=== PATIENT | female | born 1950 | race Caucasian/White ===

== ENCOUNTER 2017-11-07 05:57 | Day surgery (SDC) | payer MEDICARE, OTHER ==
[~2017-11-07 05:57] MED LIST: Buffered Lidocaine 0.9% SYRIN* 5 ML/SYR SYRINGE INTRADERM ONE
[2017-11-07] MEDS ORDERED: Buffered Lidocaine 0.9% SYRIN* 5 ML/SYR SYRINGE ONE (06:07)
[2017-11-07] MEDS ORDERED: ceFAZolin 2 GM PREMIX (*) 2 GM/50 ML BAG IVPB ONE ×2 (06:07→06:08)
[2017-11-07] MEDS ORDERED: Bupivacaine 0.25% SDV* 30 ML ONE (07:22)
[2017-11-07] MEDS ORDERED: fentaNYL* 50 MCG/ML 2 ML VIAL (100 MCG VIAL) ONE (07:47)
[2017-11-07] MEDS ORDERED: Midazolam* 1 MG/ML 2 ML VIAL (2 MG) ONE (07:47)
[2017-11-07] MEDS ORDERED: HYDROcodone/ACETAMIN 5-325 MG* 1 TAB PO PRN (09:47)
[2017-11-07] MEDS ORDERED: Ibuprofen TAB* 600 MG PO PRN (09:47)
[2017-11-07] MEDS ORDERED: Acetaminophen TAB* 325 MG PO PRN (09:47)
[2017-11-07] MEDS ORDERED: Ondansetron INJ* 2 MG/ML VIAL ONE (10:00)
[2017-11-07] MEDS ORDERED: Dexamethasone IV* 4 MG/ML 1 ML (4 MG) ONE (10:00)
[2017-11-07] MEDS ORDERED: Propofol* 10 MG/ML 20 ML BTL IV PUSH ONE (10:00)
[2017-11-07] MEDS ORDERED: Lidocaine 2% PF * 5 ML VIAL ONE (10:00)
[2017-11-07] MEDS ORDERED: HYDROcodone/ACETAMIN 5-325 MG* 1 TAB ONE (10:32)
[2017-11-07] MEDS ORDERED: Ibuprofen TAB* 600 MG ONE (10:32)
[2017-11-07 11:52] VITALS: BP 135/68
--- NOTE | 2017-11-08 07:07 | OP ---
DATE OF OPERATION: 11/07/17 - [facility] DATE OF : 48 SURGEON: Kobe Jeffers MD ASSISTANTS: KAYLAN Burris and KAYLAN Nickerson. An client services assistant was needed for the entirety of the procedure to aid in positioning of the arm and for retraction. ANESTHESIOLOGIST: Dr. Renee. ANESTHESIA: General. 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 OPERATIVE PROCEDURE: 1. Right index finger, metacarpophalangeal joint arthroplasty with Integra Silicone MCP implant. 2. Right index finger, radial collateral ligament repair. INDICATIONS: Milagro has had progressive disease. I have talked to her about risk and benefits. She understands that there is a risk of stiffness, risk of instability and risk for further surgery with the surgery. She would like to proceed. ESTIMATED BLOOD LOSS: 5 mL. COMPLICATIONS: None. FINDINGS: As expected. DESCRIPTION OF PROCEDURE: Milagro was seen in the preoperative holding area. The correct side, site, and procedure were identified. We came back to the operating room where the arm was prepped and draped in the usual fashion. A time-out was performed. The arm was exsanguinated with the Esmarch and the tourniquet inflated to 250 mmHg. I then made a curvilinear incision over the ulnar aspect of the MCP joint. A full- thickness flap was raised right off of the extensor kitchen. The extensor tendons were still reasonably centralized and so I split the interval between the EIP and the EDC and the tendon from the capsule. The layers were , the capsule was opened longitudinally and filled back radially and ulnarly. Once the joint was exposed, I went ahead and used the starting awl to open up the metacarpal head. The alignment david was placed. The alignment was checked fluoroscopically. The cutting guide was placed and cut was made just at the distal aspect of the origin of the collateral ligaments. The radial collateral ligament was quite attenuated and deficient. I then used the starting awl to open up the proximal phalanx. The gal was used to create a window in the subchondral bone sufficient to place the cutting guide. The guide was placed, a millimeter of proximal phalanx was excised with the saw. The gal was then used to open up the subchondral bone adequate to receive the broaches. I broached up to size 30. I then came to metacarpal, in a similar fashion, I broached to a size 30. The finger was placed in gentle supination during the broaching. Once that was all done, I went ahead and placed the trial implant. The fit and alignment were very nice. I removed the trial. I went ahead and placed two drill holes on the radial aspect of the metacarpal head. A 4-0 Ethibond suture was used to suturing. The two drill holes were placed at the 11 o'clock and at the 7 o'clock position. A 4-0 Ethibond suture was used to sew into the radial collateral ligament. Suture was then passed underneath the bone tunnel and sewn back into the tendon in whipstitch fashion. At this point, I went ahead and irrigated everything out copiously without touching the implant with the gloves or allowing the implant to touch anything other than the pickup. I went ahead and placed the Integra Silicone MCP arthroplasty implant. I then reduced the joint. I went ahead and pulled appropriate tension on the radial collateral ligament and sewed it in place to complete the repair of the radial collateral ligament. At this point, I went ahead and irrigated everything up. The capsule was closed with 4-0 Vicryl suture, the splint in the extensor tendon was closed with 4-0 Prolene suture with the knots buried. I went ahead and imbricated the radial sagittal band in [id number] fashion to tighten that up. Everything was looking good , so I went ahead and irrigated out the wound. Skin was closed with 4-0 Monocryl suture. Wounds were dressed with Xeroform, 4x4s, sterile Webril, and a splint was placed holding the MCP joint in 20 degrees of flexion and the IP joints in full extension and wrapping around the radial side of the index fingers so as to prevent any stress on the radial collateral ligament. Tourniquet was deflated. The hand pinked up immediately. She was then woken up and taken to the recovery room in stable condition. [id number]/[facility] #: [id number] RANDY
== END 2017-11-07 12:01 | disposition home or self-care (01) ==
LOC: OR 05:57
PROVIDERS: ATTEND Orthopaedic Surgery Hand Surgery
DX: M06.341 Rheumatoid nodule, right hand (principal); M24.341 Pathological dislocation of right hand, not elsewhere classified; Z87.891 Personal history of nicotine dependence; K21.9 Gastro-esophageal reflux disease without esophagitis; M79.7 Fibromyalgia
CPT/HCPCS: 36415; 86803; 88304; 88311; A9270-GY; C1776; J0690; J1100; J2250; J2405; J2704; J3010

== ENCOUNTER 2017-11-23 19:14 | Emergency (ER) | payer MEDICARE, OTHER ==
[2017-11-23 22:11] LABS: Urine Appearance Cloudy; Urine Blood Negative (Negative); Urine Color Yellow; Urine Ketones Negative (Negative); Urine Protein Negative (Negative); Urine Urobilinogen Negative (Negative)
[2017-11-23] MEDS ORDERED: Cephalexin CAP* 500 MG PO ONE (22:33)
[2017-11-23 22:48] VITALS: BP 152/88
--- NOTE | 2017-11-24 00:11 | ED ---
Lower Extremity - HPI Summary HPI Summary: Patient presents to the ED with daughter. Daughter states she has been more confused recently, but patient denies this. She notes to a fall recently to the right leg which was witnessed by daughter. She denies hitting her head, LOC or back pain. SHe notes to a "burning" feeling to the right lateral thigh. She denies any and all other symptoms. She states she does not want a xray or other testing. I have advised she take a urine test to which she agrees. Denies SOb, chest discomfort, N/V/C/D. Denies fevers, sweats or chills. She has fibromyalgia, but is otherwise healthy. - History of Current Complaint Chief Complaint: EDHipPelvisInjury Stated Complaint: FALL Time Seen by Provider: 11/23/17 21:26 Hx Obtained From: Patient Mechanism Of Injury: Blunt Trauma Onset of Pain: Minutes Onset/Duration: Minutes Severity Initially: Mild Severity Currently: Mild Pain Intensity: 0 Pain Scale Used: 0-10 Numeric Timing: Constant Location: Is Discrete @ - left lateral thigh Associated Signs And Symptoms: Positive: Swelling Aggravating Factor(s): Standing, Ambulation Alleviating Factor(s): Elevation Able to Bear Weight: No - Risk Factors Gout Risk Factors: Negative DVT Risk Factors: Negative Septic Arthritis Risk Factor: Negative - Allergies/Home Medications Allergies/Adverse Reactions: Allergies Allergy/AdvReac Type Severity Reaction Status Date / Time No Known Allergies Allergy Verified 11/07/17 06:16 PMH/Surg Hx/FS Hx/Imm Hx Previously Healthy: Yes Endocrine/Hematology History: Denies: Hx Diabetes Cardiovascular History: Denies: Hx Hypertension, Hx Pacemaker/ICD GI History: Reports: Hx Gastroesophageal Reflux Disease - CONTROL WITH MEDS, Hx Hiatal Hernia - WITH A MALFUNCTION ESOPHAGUS, Hx Irritable Bowel, Other GI Disorders - COLITIS History: Reports: Hx Kidney Infection - HX OF Musculoskeletal History: Reports: Hx Arthritis, Hx Rheumatoid Arthritis, Hx Bursitis, Other Musculoskeletal History - DDD Denies: Hx Osteoporosis Sensory History: Reports: Hx Contacts or Glasses - READING GLASSES Denies: Hx Hearing Aid Opthamlomology History: Reports: Hx Contacts or Glasses - READING GLASSES Neurological History: Reports: Hx Headaches - STATES RELATED TO NECK-STATES HAS TALKED WITH MD ABOUT THIS Psychiatric History: Denies: Hx Panic Disorder - Cancer History Cancer Type, Location and Year: CERVIX 1974 Hx Chemotherapy: No Hx Radiation Therapy: No - Surgical History Surgery Procedure, Year, and Place: 1973 HYSTERECTOMY, [place], [place]. 1978 TONSILLECTOMY, (37 YEARS AGO), [place], [place]. 1993 RIGHT KNEE REPLACEMENT, [place]. 2005 RIGHT ROTATOR CUFF REPAIR, [facility]. 07/2015 LUMBAR REGION BACK SURGERY WITH FUSION, [place], [place] Hx Anesthesia Reactions: No - Immunization History Hx Pertussis Vaccination: No Immunizations Up to Date: Unable to Obtain/Confirm Infectious Disease History: No Infectious Disease History: Denies: Traveled Outside the US in Last 30 Days - Social History Occupation: Unemployed Lives: With Family Alcohol Use: Rare Hx Substance Use: No Substance Use Type: Reports: None Smoking Status (MU): Former Smoker Type: Cigarettes Amount Used/How Often: 1/2 PPD FOR ABOUT 50 YEARS Length of Time of Smoking/Using Tobacco: 50 YEARS Have You Smoked in the Last Year: Yes Review of Systems Constitutional: Negative Negative: Fever, Chills, Fatigue Eyes: Negative Cardiovascular: Negative Respiratory: Negative Genitourinary: Negative Positive: no symptoms reported, see HPI Positive: Myalgia - right lateral thigh Skin: Negative All Other Systems Reviewed And Are Negative: Yes Physical Exam Triage Information Reviewed: Yes Vital Signs On Initial Exam: Initial Vitals Temp Pulse Resp BP Pulse Ox 98.4 F 84 18 156/105 94 11/23/17 19:29 11/23/17 19:29 11/23/17 19:29 11/23/17 19:29 11/23/17 19:29 Vital Signs Reviewed: Yes Appearance: Positive: Well-Appearing, No Pain Distress, Well-Nourished Skin: Positive: Warm, Skin Color Reflects Adequate Perfusion Head/Face: Positive: Normal Head/Face Inspection Eyes: Positive: EOMI, COLTON, Conjunctiva Clear Neck: Positive: Supple, Nontender, No Lymphadenopathy Respiratory/Lung Sounds: Positive: Clear to Auscultation, Breath Sounds Present Cardiovascular: Positive: Normal, RRR, Pulses are Symmetrical in both Upper and Lower Extremities Musculoskeletal: Positive: Pain @ - right lateral thigh Neurological: Positive: Speech Normal Psychiatric: Positive: Normal, Affect/Mood Appropriate AVPU Assessment: Alert - Ger Coma Scale Coma Scale Total: 15 Diagnostics - Vital Signs Vital Signs Temp Pulse Resp BP Pulse Ox 11/23/17 22:46 97.8 F 75 16 152/88 100 12/27/17 19:29 98.4 F 84 18 156/105 94 - Laboratory Lab Results: Lab Results 11/23/17 Range/Units 21:57 Urine Color Yellow Urine Appearance Cloudy Urine pH 5.0 (5-9) Ur Specific [place] 1.010 (1.010-1.030) Urine Protein Negative (Negative) Urine Ketones Negative (Negative) Urine Blood Negative (Negative) Urine Nitrate Negative (Negative) Urine Bilirubin Negative (Negative) Urine Urobilinogen Negative (Negative) Ur Leukocyte Esterase 3+ H (Negative) Urine WBC (Auto) 3+(>20/hpf) H (Absent) Urine RBC (Auto) Trace(0-2/hpf) (Absent) Ur Squamous Epith Cells Present H (Absent) Urine Bacteria Absent (Absent) Urine Glucose Negative (Negative) Lab Statement: Any lab studies that have been ordered have been reviewed, and results considered in the medical decision making process. Lower Extremity Course/Dx - Course Course Of Treatment: Patient presents with daughter. She is refusing offer of xray. She is ambulating well. No bruising noted to the leg. She states it just "landaverde" s/p mechanical fall. UA obtained and shows 3+ leuks and WBC. She is agreeable to start keflex. Will await cultures. - Diagnoses Differential Diagnosis/HQI/PQRI: Positive: Other - contusion of leg, UTI Provider Diagnoses: Contusion of leg, UTI (urinary tract infection) Discharge - Discharge Plan Condition: Stable Disposition: HOME Prescriptions: Cephalexin CAP* [Keflex CAP*] 500 mg PO QID #28 cap MDD 4 Patient Education Materials: Urinary Traction Infection in Older Adults (ED) Referrals: Srinivasa Bolanos NP [Primary Care Provider] - Additional Instructions: Dx. Urinary Tract Infection Drink plenty of fluids. Supplement with cranberry or butler juice. You may also take an over the counter cranberry supplement. If you have any questions about this, you may ask your pharmacist. If your symptoms have not improved in 1-2 days, if you develop fever, sweats or chills, please go to your emergency room, or call your PCP. Antibiotics were prescribed to you. Please take as directed. Supplement with over the counter probiotics on the opposite schedule of your antibiotic to prevent secondary infections. Do not take together as they may counteract each other. Pyridium: This medication is used to treat pain, burning, increased urination, and increased urge to urinate. These symptoms are usually caused by infection, injury, surgery, catheter, or other conditions that irritate the lower urinary tract. Pyridium will treat the symptoms of a urinary tract infection, but this medication does not treat the actual infection. Take the antibiotic that your doctor prescribes to treat your infection. Pyridium will most likely darken the color of your urine to an orange or red color. This is a normal effect and is not cause for alarm unless you have other symptoms such as pale or yellowed skin, fever, stomach pain, nausea, and vomiting. Darkened urine may also cause stains to your underwear, which may or may not be removed by laundering. It can also permanently stain soft contact lenses, and you should not wear them while taking this medicine.
== END 2017-11-23 22:46 | disposition home or self-care (01) ==
LOC: ED 19:14
DX: S80.11XA Contusion of right lower leg, initial encounter (principal); N39.0 Urinary tract infection, site not specified; W19.XXXA Unspecified fall, initial encounter; Y93.9 Activity, unspecified; Y92.9 Unspecified place or not applicable
CPT/HCPCS: 81003; 81015; 87086; 93005; 99282; A9270-GY

== ENCOUNTER 2018-02-07 13:44 | Emergency (ER) | payer MEDICARE, OTHER ==
[2018-02-07] MEDS ORDERED: Orphenadrine Citrate IV* 30 MG/ML 2 ML VIAL IV ONE (14:35)
[2018-02-07] MEDS ORDERED: Ketorolac INJ* 30 MG/ML 1 ML VIAL IV PUSH ONE (14:35)
[2018-02-07] MEDS ORDERED: Dexamethasone IV* 4 MG/ML 1 ML (4 MG) IV SLOW PU ONE (14:35)
--- NOTE | 2018-02-07 15:53 | RAD ---
INDICATION: Neck pain. COMPARISON: There are no prior studies available for comparison. TECHNIQUE: Contiguous axial sections were obtained from the skull base through the T1 vertebra. Images were reconstructed in the sagittal and coronal planes. FINDINGS: There is straightening of the cervical spine. In addition there is mild retrolisthesis of C4 relative to C5 of approximately 2.5 mm. There is mild anterolisthesis at the C7-T1 level approximately 2 mm. No prevertebral soft tissue swelling or fracture is appreciated. At the C3-C4 level there is mild posterior uncinate process spurring and hypertrophic changes within the facet joints. No significant spinal canal narrowing is present. There is mild bilateral neural foraminal narrowing. At the C4-C5 level there is mild posterior uncinate process spurring and hypertrophic changes within the facet joints. There is mild spinal canal narrowing and mild to moderate bilateral neural foraminal narrowing. At the C5-C6 level there is mild posterior uncinate process spurring. There is mild spinal canal narrowing and mild bilateral neural foraminal narrowing. At the C6-C7 level there is no evidence for spinal canal or neural foraminal narrowing. IMPRESSION: 1. MILD RETROLISTHESIS AT THE C4-C5 LEVEL AND MILD ANTEROLISTHESIS AT THE C7-T1 LEVEL LIKELY DEGENERATIVE IN ORIGIN. 2. MODERATE CERVICAL SPONDYLOSIS. IF THE PATIENT'S SYMPTOMS PERSIST RECOMMEND FOLLOW-UP OUTPATIENT MR IMAGING.
[2018-02-07 16:49] VITALS: BP 107/95
--- NOTE | 2018-02-09 12:28 | ED ---
Osvaldo Howell Angela, scribed for Rasheed North MD on 02/07/18 at 1433 . Neck Pain - HPI Summary HPI Summary: This pt is a 68 y/o female presenting to [facility] c/o progressively worsening neck pain for the past weeks. Pt reports she has pain radiating down her neck and across her shoulder into her arms. Pt notes she has decreased ROM of bilateral arms secondary to pain. She additionally states right knee swelling and is unable to bend it secondary to pain. Denies headache, fever. She reports she was at [facility] yesterday for the same pain and had an MRI of her right shoulder. Pt did not have a CT done yesterday. PMHx includes arthritis. - History of Current Complaint Chief Complaint: EDGeneral Stated Complaint: NECK PAIN, RIGHT SIDE PAIN Time Seen by Provider: 02/07/18 14:26 Hx Obtained From: Patient Onset/Duration Of Injury/Symptoms: Weeks Timing: Constant, Lasting Weeks Onset/Duration: Started weeks ago Severity Currently: Severe Pain Intensity: 10 Pain Scale Used: 0-10 Numeric Location: Discrete At: - neck pain Aggravating Factors: Movement Alleviating Factors: Nothing Associated Signs & Symptoms: Positive: Swelling - right knee. Negative: Fever, Headache - Allergies/Home Medications Allergies/Adverse Reactions: Allergies Allergy/AdvReac Type Severity Reaction Status Date / Time morphine AdvReac Intermediate Nausea Verified 02/07/18 15:24 PMH/Surg Hx/FS Hx/Imm Hx Endocrine/Hematology History: Denies: Hx Diabetes Cardiovascular History: Denies: Hx Hypertension, Hx Pacemaker/ICD GI History: Reports: Hx Gastroesophageal Reflux Disease - CONTROL WITH MEDS, Hx Hiatal Hernia - WITH A MALFUNCTION ESOPHAGUS, Hx Irritable Bowel, Other GI Disorders - COLITIS History: Reports: Hx Kidney Infection - HX OF Denies: Hx Renal Disease Musculoskeletal History: Reports: Hx Arthritis, Hx Rheumatoid Arthritis, Hx Bursitis, Other Musculoskeletal History - DDD Denies: Hx Osteoporosis Sensory History: Reports: Hx Contacts or Glasses - READING GLASSES Opthamlomology History: Reports: Hx Contacts or Glasses - READING GLASSES Neurological History: Reports: Hx Headaches - STATES RELATED TO NECK-STATES HAS TALKED WITH MD ABOUT THIS Psychiatric History: Denies: Hx Panic Disorder - Cancer History Cancer Type, Location and Year: CERVIX 1973 Hx Chemotherapy: No Hx Radiation Therapy: No - Surgical History Surgery Procedure, Year, and Place: 1973 HYSTERECTOMY, [place], [place]. 1978 TONSILLECTOMY, (37 YEARS AGO), [place], [place]. 1993 RIGHT KNEE REPLACEMENT, [place]. 2005 RIGHT ROTATOR CUFF REPAIR, [facility]. 07/2015 LUMBAR REGION BACK SURGERY WITH FUSION ([facility]), [place], [place] Hx Anesthesia Reactions: No Infectious Disease History: No Infectious Disease History: Denies: Traveled Outside the US in Last 30 Days - Family History Known Family History: Positive: Respiratory Disease - COPD - Social History Alcohol Use: Rare Hx Substance Use: No Substance Use Type: Reports: None Smoking Status (MU): Former Smoker Type: Cigarettes Amount Used/How Often: 1/2 PPD FOR ABOUT 50 YEARS Length of Time of Smoking/Using Tobacco: 50 YEARS Have You Smoked in the Last Year: Yes Review of Systems Negative: Fever, Chills Eyes: Negative ENT: Negative Cardiovascular: Negative Respiratory: Negative Gastrointestinal: Negative Genitourinary: Negative Musculoskeletal: Other - neck pain, bilateral arm pain Positive: Edema - right knee All Other Systems Reviewed And Are Negative: Yes Physical Exam - Summary Physical Exam Summary: VITAL SIGNS: Reviewed. GENERAL: Patient is a well-developed and nourished female who is lying comfortable in the stretcher. Patient is not in any acute respiratory distress. HEAD AND FACE: No signs of trauma. No ecchymosis, hematomas or skull depressions. No sinus tenderness. EYES: PERRLA, EOMI x 2, No injected conjunctiva, no nystagmus. EARS: Hearing grossly intact. Ear canals and tympanic membranes are within normal limits. MOUTH: Oropharynx within normal limits. NECK: Supple, trachea is midline, no adenopathy, no JVD, no carotid bruit. There is c-spine tenderness. CHEST: Symmetric, no tenderness at palpation LUNGS: Clear to auscultation bilaterally. No wheezing or crackles. CVS: Regular rate and rhythm, S1 and S2 present, no murmurs or gallops appreciated. ABDOMEN: Soft, non-tender. No signs of distention. No rebound no guarding, and no masses palpated. Bowel sounds are normal. EXTREMITIES: FROM in all major joints, no edema, no cyanosis or clubbing. There are good pulses. There is good capillary refill. Pt is neurovascular intact in the upper extremities. NEURO: Alert and oriented x 3. No acute neurological deficits. Speech is normal and follows commands. SKIN: Dry and warm Triage Information Reviewed: Yes Vital Signs On Initial Exam: Initial Vitals Temp Pulse Resp BP Pulse Ox 99.5 F 86 18 127/75 100 02/07/18 13:51 02/07/18 13:51 02/07/18 13:51 02/07/18 13:51 02/07/18 13:51 Vital Signs Reviewed: Yes Diagnostics - Vital Signs Vital Signs Temp Pulse Resp BP Pulse Ox 02/07/18 13:51 99.5 F 86 18 127/75 100 - Laboratory Lab Statement: Any lab studies that have been ordered have been reviewed, and results considered in the medical decision making process. - CT Cervical spine CT CT Interpretation: No Acute Changes - IMPRESSION: 1. Mild retrolisthesis at the C4-C5 level and mild anterolisthesis at the C7-T1 level likely degenerative in origin. 2. Moderate cervical spondylosis. If the patient's symptoms persist recommend follow-up outpatient MRI imaging. Dr. North has reviewed this radiogloy report. CT Interpretation Completed By: Radiologist Re-Evaluation - Re-Evaluation First Eval Re-Evaluation Time: 16:22 Comment: I reviewed the neck CT with the pt. Neck Course/Dx - Course Assessment/Plan: This pt is a 68 y/o female presenting to [facility] c/o progressively worsening neck pain for the past weeks. Pt reports she has pain radiating down her neck and across her shoulder into her arms. Pt notes she has decreased ROM of bilateral arms secondary to pain. She additionally states right knee swelling and is unable to bend it secondary to pain. Denies headache , fever. She reports she was at [facility] yesterday for the same pain and had an MRI of her right shoulder. Pt did not have a CT done yesterday. PMHx includes arthritis. Cervical spine CT shows 1. Mild retrolisthesis at the C4-C5 level and mild anterolisthesis at the C7-T1 level likely degenerative in origin. 2. Moderate cervical spondylosis. If the patient's symptoms persist recommend follow-up outpatient MRI imaging. In the ED course the pt was given Decadron, Norflex, and Toradol, and after these medications her symptoms improved. Therefore, the pt will be discharged to home with follow up from her PCP. She is given a prescription for Flexeril, Grafton, and Medrol dosepak. She is instructed to return to the ED for any worsening symptoms. Pt is hemodynamically stable, alert and oriented x3. - Diagnoses Provider Diagnoses: Neck pain, Knee pain Discharge - Discharge Plan Condition: Stable Disposition: HOME Prescriptions: Cyclobenzaprine TAB* [Flexeril 10 MG TAB*] 10 mg PO TID PRN #12 tab PRN Reason: Pain HYDROcodone/ACETAMIN 5-325 MG* [Grafton 5-325 TAB*] 1 - 2 tab PO Q6H PRN #12 tab MDD 4 PRN Reason: Pain methylPREDNISolone [Medrol Dosepak 4 MG*] 0 mg PO .SEE ASHLEIGH INSTRUCTION #1 ashleigh Patient Education Materials: Knee Pain (ED), Neck Pain (ED) Referrals: Mary Lou Garcia MD [Primary Care Provider] - 3 Days Additional Instructions: Please follow up with your primary care provider. RETURN TO THE ED FOR ANY WORSENING SYMPTOMS. The documentation as recorded by the Osvaldo chang Angela accurately reflects the service I personally performed and the decisions made by Can morocho Walter, MD.
== END 2018-02-07 16:50 | disposition home or self-care (01) ==
LOC: ED 13:44
DX: M54.2 Cervicalgia (principal); M25.561 Pain in right knee; Z87.891 Personal history of nicotine dependence
CPT/HCPCS: 72125; 96374; 96375; 99283; J1100; J1885; J2360

== ENCOUNTER 2022-05-13 15:30 | Inpatient (IN) ==
[2022-05-13] MEDS ORDERED: Vancomycin per Pharmacy 1 EA NOTE FOLLOW UP SCH (18:00)
[2022-05-13] MEDS: Cefepime 2 GM in Dextrose 2 GM/50 ML BAG IV SCH (18:22)
[2022-05-13] MEDS ORDERED: Vancomycin 1,500 MG in NS 0.9% 250 ml 250 ML IVPB ONE (18:30)
[2022-05-13] MEDS: PTO: Apremilast 30 mg TAB (NF) PO SCH (21:24)
[2022-05-13 21:57] LABS: eGFR CKD-EPI 71.3 (>60)
[2022-05-14] MEDS: Cefepime 2 GM in Dextrose 2 GM/50 ML BAG IV SCH ×2 (05:33→18:18)
[2022-05-14] MEDS ORDERED: Buffered Lidocaine 1% SYRIN 1 ml INTRADERM ONE (06:00)
[2022-05-14] MEDS: Lactated Ringers 1000 ml BAG 1,000 ML IV SCH (07:38)
[2022-05-14] MEDS: PTO: Apremilast 30 mg TAB (NF) PO SCH ×2 (07:51→21:53)
[2022-05-14] MEDS: Vancomycin 750 MG in NS 0.9% 250 ML IVPB SCH ×2 (08:39→21:55)
[2022-05-14] MEDS ORDERED: Lidocaine 1% w EPI 1:200,000 SDV 30 ML VIAL ONE (10:13)
[2022-05-14] MEDS ORDERED: HYDROmorphone 1 MG/1 ML SYRINGE IV PRN (10:31)
[2022-05-14] MEDS ORDERED: Naloxone 0.4 mg VIAL 0.4 mg/ml 1 ml VIAL IV PRN (10:31)
[2022-05-14] MEDS ORDERED: Lidocaine 2% PF 5 ML VIAL ONE (10:39)
[2022-05-14] MEDS ORDERED: Midazolam 2 mg/2 ml VIAL 1 mg/ml 2 ml VIAL (2 mg) ONE (10:39)
[2022-05-14] MEDS ORDERED: Propofol 10 MG/ML 20 ML BTL ONE (10:39)
[2022-05-14] MEDS ORDERED: Ondansetron 4 mg VIAL 2 MG/ML 2 ml VIAL ONE (10:39)
[2022-05-14] MEDS ORDERED: Dexamethasone IV 4 MG/ML VIAL 1 ml VIAL ONE (10:39)
[2022-05-14] MEDS ORDERED: fentaNYL 250 mcg/5 ml 50 MCG/ML 5 ml VIAL (250 MCG) ONE (10:39)
[2022-05-14] MEDS ORDERED: Rocuronium 50 mg VIAL 10 mg/ml 5 ml VIAL (50 mg) ONE (10:39)
[2022-05-14] MEDS ORDERED: Acetaminophen IV 1 GM/100ML 100 ML IV ONE (11:47)
[2022-05-14] MEDS ORDERED: fentaNYL 100 mcg/2 ml 50 MCG/ML VIAL ONE (12:26)
[2022-05-14 16:10] LABS: Body Fluid Source Synovial Fluid
[2022-05-14 16:11] LABS: Body Fluid Appearance Bloody; Body Fluid Color Red
[2022-05-14 16:38] LABS: Body Fluid WBC 675 /mcL
[2022-05-14 18:07] LABS: Body Fluid Mono 3 %; Body Fluid Total Cells Counted 200
[2022-05-15] MEDS: Lactated Ringers 1000 ml BAG 1,000 ML IV SCH ×2 (05:06→20:19)
[2022-05-15] MEDS: Cefepime 2 GM in Dextrose 2 GM/50 ML BAG IV SCH ×2 (06:05→17:41)
[2022-05-15] MEDS ORDERED: Vancomycin Trough Check NOTE FOLLOW UP ONE (08:30)
[2022-05-15 09:09] LABS: eGFR CKD-EPI 91.3 (>60)
[2022-05-15] MEDS: Vancomycin 750 MG in NS 0.9% 250 ML IVPB SCH (09:31)
[2022-05-15] MEDS: PTO: Apremilast 30 mg TAB (NF) PO SCH ×2 (09:32→20:02)
[2022-05-15] MEDS: Vancomycin 1000 MG in NS 0.9% 250 ML IVPB SCH (20:06)
[2022-05-16] MEDS: Cefepime 2 GM in Dextrose 2 GM/50 ML BAG IV SCH ×2 (06:11→11:21)
[2022-05-16] MEDS: Vancomycin 1000 MG in NS 0.9% 250 ML IVPB SCH ×2 (09:40→20:13)
[2022-05-16 10:01] LABS: ABS Basophils 0.1 10^3/ul (0-0.2); ABS Eosinophils 0.3 10^3/ul (0-0.6); ABS Lymphocytes 1.7 10^3/ul (1.0-4.8); ABS Monocytes 0.7 10^3/ul (0-0.8); ABS Neutrophils 4.9 10^3/ul (1.5-7.7); Eosinophil % 3.9 %; Hematocrit 31 % (35-47); Hemoglobin 9.7 g/dL (12.0-16.0); Lymphocyte % 21.8 %; Mean Corpuscular HGB Conc 31 g/dL (31-36); Mean Corpuscular Hemoglobin 22 pg (27-31); Mean Corpuscular Volume 72 fL (80-97); Mean Platelet Volume 6.7 fL (7.4-10.4); Platelet Count 394 10^3/uL (150-450); Red Blood Count 4.35 10^6 /uL (3.70-4.87); Red Cell Distribution Width 16 % (10-15); White Blood Count 7.7 10^3/uL (3.5-10.8)
[2022-05-16] MEDS: PTO: Apremilast 30 mg TAB (NF) PO SCH ×4 (10:28→22:12)
[2022-05-16] MEDS: Cefepime 1 GM in Dextrose 1 GM/50 ML BAG IV SCH ×2 (11:58→21:49)
[2022-05-17 06:25] LABS: eGFR CKD-EPI 92.2 (>60)
[2022-05-17] MEDS ORDERED: Vancomycin Trough Check NOTE FOLLOW UP ONE (08:30)
[2022-05-17] MEDS: PTO: Apremilast 30 mg TAB (NF) PO SCH (09:42)
[2022-05-17] MEDS ORDERED: Omeprazole 10 mg CAP (NF) PO SCH (11:00)
[2022-05-17] MEDS: Vancomycin 1000 MG in NS 0.9% 250 ML IVPB SCH (11:13)
[2022-05-17] MEDS: Cefepime 1 GM in Dextrose 1 GM/50 ML BAG IV SCH (11:13)
[2022-05-17 11:57] VITALS: BP 137/84
== END 2022-05-17 14:30 | disposition home or self-care (01) | DRG 908 ==
LOC: SSU
PROVIDERS: ADMIT Orthopaedic Surgery Sports Medicine; ATTEND Orthopaedic Surgery Sports Medicine